=== PATIENT | female | born 1970 | race Caucasian/White ===

== ENCOUNTER 2017-06-01 10:21 | Emergency (ER) | payer SELFPAY ==
--- NOTE | 2017-06-01 10:47 | C.PDOC ---
History Of Present Illness 46 yo female, no prior hx, presnets with rash. as per pt, noted rash across chest abdomen and upper legs. pt staets it is mildly puritic. pt is visiting on vacation. pt states rash is not pain ful. unsure if it is related to "clothes she tried on" no fevers, n/v/d, urinary changes. Time Seen by Provider: 06/01/17 10:42 Chief Complaint (Nursing): Abnormal Skin Integrity Past Medical History Reviewed: Historical Data, Nursing Documentation, Vital Signs Vital Signs: Last Vital Signs Temp 97.9 F 06/01/17 11:34 Pulse 56 L 06/01/17 11:34 Resp 12 06/01/17 11:34 BP 120/81 06/01/17 11:34 Pulse Ox 99 06/01/17 11:34 Family History: States: Unknown Family Hx - Social History Hx Alcohol Use: Yes Hx Substance Use: No - Immunization History Hx Tetanus Toxoid Vaccination: No Hx Influenza Vaccination: No Hx Pneumococcal Vaccination: No Review Of Systems Except As Marked, All Systems Reviewed And Found Negative. Skin: Positive for: Rash Physical Exam - Physical Exam Appears: Well, No Acute Distress Skin: Normal Color, Warm, Dry Eye(s): bilateral: Normal Inspection, PERRL, EOMI Nose: Normal Throat: Normal Neck: Normal Cardiovascular: Rhythm Regular Respiratory: Normal Breath Sounds Gastrointestinal/Abdominal: Normal Exam Back: Normal Inspection Extremity: Normal ROM Additional Physical Exam Comments: (+)maculopapular rash across chest, anterior abdomen, upper legs. blanchng, ED Course And Treatment O2 Sat by Pulse Oximetry: 100 Medical Decision Making Medical Decision Making: rash- suspect contact dermatitis vs other rash. pt well appeairng, will treat supportively advise outpt f/u. 1145: pt reassesed: syptoms improving in er. does not wish to wait in er for further reassessment. beverly dill. Disposition - Disposition Referrals: Sherman Ramírez MD [Staff Provider] - [facility] [Outside] [facility] [Outside] Disposition: HOME/ ROUTINE Disposition Time: 10:59 Condition: STABLE Additional Instructions: please follow up with specilaist. and clinic. return to er with worsening symptoms or concerns. Prescriptions: DiphenhydrAMINE [Benadryl] 25 mg PO Q4 PRN #20 cap PRN Reason: Itching / Pruritus Prednisone 50 mg PO DAILY #5 tablet Instructions: Acute Rash (ED) Forms: CareSocialtext (Georgian) - Clinical Impression Clinical Impression: Rash
[2017-06-01 11:39] VITALS: BP 120/81; PULSE 56; RESP 12; TEMP 97.9
[2017-06-01 12:14] VITALS: O2SAT 100
== END 2017-06-01 11:40 | disposition home or self-care (01) ==
LOC: C.ER 10:21
DX: R21 Rash and other nonspecific skin eruption (principal)